=== PATIENT | male | born 1990 | race Caucasian/White ===

== ENCOUNTER 2023-03-01 12:40 | Emergency (ER) | payer BC ==
[2023-03-01] MEDS ORDERED: HYDROCODONE/APAP 10/325 TAB ONE (13:52)
--- NOTE | 2023-03-01 14:07 | RAD REPORT ---
EXAM DESCRIPTION: CT - Head C Spine Cap Wo Con - 03/01/2023 1:10 pm CLINICAL HISTORY: PAIN COMPARISON: No comparisons TECHNIQUE: Head and cervical spine CT images were obtained without IV contrast. Chest, abdomen, and pelvis CT images were obtained, also without IV contrast. Multiplanar reformats were generated and re viewed. All CT scans are performed using dose optimization technique as appropriate and may include automated exposure control or mA/KV adjustment according to patient size. FINDINGS: CT HEAD: No intracranial hemorrhage, mass effect, or edema. No evidence of acute territorial infarct. No midli ne shift or abnormal fluid collection. The ventricles are normal in caliber and configuration for age . Basal cisterns are patent. Mastoid aircells and paranasal sinuses are clear. No acute skull fractur e. CT CERVICAL SPINE: No acute cervical spine fracture or subluxation. Vertebral body heights are well maintained. Facet suellen ints are normal in alignment. No hyperattenuating canal hematoma. Prevertebral and paraspinous soft t issues are unremarkable. CT CHEST: No pneumothorax, pulmonary contusion or pleural fluid collection. No mediastinal hematoma and the aor ta and pulmonary arteries are unremarkable. No chest will mass or abnormal axillary finding. No displ aced rib fracture or other significant bony finding. CT ABDOMEN/ PELVIS: No evidence of traumatic injury to solid abdominal viscera. Gallbladder and biliary tree are unremark able. No bowel injury or significant finding. No free air, free fluid or abnormal fat stranding. No u rinary bladder abnormality. No significant bony finding. IMPRESSION: No acute traumatic findings. No other acute or suspicious abnormalities.
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
[2023-03-01 15:19] VITALS: BP 148/88; O2SAT 100
== END 2023-03-01 15:14 | disposition home or self-care (01) ==
LOC: ER 12:40
PROC: 0HQ0XZZ Repair Scalp Skin, External Approach (ICD-10-PCS; principal; 2023-03-01)
DX: S01.01XA Laceration without foreign body of scalp, initial encounter (principal); Y04.8XXA Assault by other bodily force, initial encounter; I10 Essential (primary) hypertension
CPT/HCPCS: 70450; 71250; 72125; 99284